=== PATIENT | female | born 1990 | race Caucasian/White ===

== ENCOUNTER 2022-04-29 21:02 | Emergency (ER) | payer OTHER | END 2022-04-29 21:39 | disposition home or self-care (01) | LOC: MADERS 21:02 | DX: S61.012A Laceration without foreign body of left thumb without damage to nail, initial encounter (principal); S61.011A Laceration without foreign body of right thumb without damage to nail, initial encounter; W26.0XXA Contact with knife, initial encounter | CPT/HCPCS: 12001 ==